=== PATIENT | female | born 1995 | race Two or more races ===

== ENCOUNTER 2024-08-18 15:12 | Outpatient (CLI) | payer MEDICAID, SELFPAY ==
[2024-08-18] VITALS (13 sets, daily range): BP systolic 112–130; BP diastolic 74–93; PULSE 64–79; RESP 18–99; TEMP 36.6; BMI 32.3
[2024-08-18 16:03] LABS: Collection Type, Urine Clean Catch
[2024-08-18 16:06] LABS: Basophils % (Auto) 1 % (0-2.5); Eosinophils % (Auto) 1 % (0-10); Hematocrit 40.9 % (36.0-46.0); Immature Granulocytes % (Auto) 1 % (0-0); Immature Granulocytes Auto 0.03 Thou/mm3 (0.00-0.00); Lymphocytes # (Auto) 2.1 Thou/mm3 (1.0-4.8); Lymphocytes % (Auto) 38 % (10-50); Mean Corpuscular HGB Conc 34.2 g/dl (31.0-37.0); Mean Corpuscular Hemoglobin 28.9 pg (25.0-35.0); Mean Corpuscular Volume 84 fL (80-100); Monocytes # (Auto) 0.3 Thou/mm3 (0.0-0.8); Monocytes % (Auto) 5 % (0-12); Neutrophils # (Auto) 3.1 Thou/mm3 (1.8-7.7); Neutrophils % (Auto) 56 % (37-80); Nucleated Red Blood Cell % 0 /100 WBC (0); Platelet Count 125 Thou/mm3 (140-440); RDW Standard Deviation 47.8 fL (36.4-46.3); Red Blood Count 4.85 Miln/mm3 (4.00-5.20); White Blood Count 5.6 Thou/mm3 (3.6-11.0)
[2024-08-18 16:23] LABS: Alanine Aminotransferase 18 U/L (10-49); Albumin, Serum 3.7 gm/dL (3.5-5.0); Albumin/Globulin Ratio 1.4 (1.2-2.2); Alkaline Phosphatase 133 U/L (46-116); Anion Gap 8 (7-16); Aspartate Amino Transferase 18 U/L (0-34); BUN/Creatinine Ratio 11 Ratio (12-20); Bilirubin,Total 0.5 mg/dL (0.3-1.2); Blood Urea Nitrogen 8 mg/dL (9-23); Calcium 8.8 mg/dL (8.3-10.6); Chloride 106 mMol/L (98-107); Creatinine (Component) 0.7 mg/dL (0.6-1.3); Estimated Creatinine Clearance 119.6 mL/min (>60); Globulin 2.7 gm/dL (2.3-3.5); Glucose 80 mg/dL (74-106); LDH (Lactate Dehydrogenase) 191 U/L (120-246); Osmolality,Calculated 263 (275-295); Potassium 3.8 mMol/L (3.4-5.1); Sodium 133 mMol/L (136-145); Total Protein 6.4 gm/dL (5.7-8.2); Uric Acid 8.4 mg/dL (3.1-7.8); eGFR > 60 See Note
[2024-08-18 16:24] LABS: Bilirubin,Urine Negative (Negative); Blood,Urine Negative (Negative); Clarity,Urine Clear (Clear/Hazy); Color,Urine Lt-Yellow (Lt Yel-Yel); Glucose, Urine Negative (Negative); Ketones,Urine Negative (Negative); Leukocyte Esterase,Urine Positive (Negative); Nitrite,Urine Negative (Negative); Protein,Urine Negative (Neg - Trace); RBC,Urine < 1 /hpf (0-3); Specific Gravity,Urine 1.005 (1.001-1.035); Squamous Epithelial Cell,Urine 1 /hpf (0-5); Urobilinogen,Urine Negative mg/dL (0.0-1.0); WBC,Urine 1 /hpf (0-5)
[2024-08-18 16:26] LABS: Sperm,Urine Present
[2024-08-18 16:29] LABS: Fibrinogen 383 mg/dL (175-375); INR 0.9 (0.9-1.3); Partial Thromboplastin Time 30.5 Seconds (22.0-36.0); Prothrombin Time 10.2 Seconds (9.0-12.2)
[2024-08-18 17:09] LABS: Creatinine,Random Urine 30 mg/dL (30-125); Protein Total, Random Urine < 6 mg/dL (1-14)
--- NOTE | 2024-08-18 17:40 | PD.LDPN ---
Documentation for date of: 08/18/24 OB Labor Progress Note Assessment and Plan Comments: Mera is a 28yo with SIUP at 37&0wk presenting to L&D from clinic for PIH workup. She had mild range bp noted in clinic and this was first occasion in . She also has had cough and congestion with associated headache currently. She notes no painful/regular ctx, no vaginal bleeding, no lof. Normal movement. She denies vision changes and RUQ pain. Current : This has been otherwise uncomplicated, she has had regular OB care with Amanda Le Previous pregnancies: history of term , no PIH ROS negative other than what was described above. First bp 130/93 then all other 7 bp's 110's-120's/70's-80's, afebrile General: well developed, well nourished, no acute distress, conversant Cardiac: normal heart rate Lungs: breathing without distress Abdomen: soft, gravid, non-tender, no rebound or guarding Extremities: no pain with palpation of calves NST: Reactive, +accels, 1 variable decel with no recurrence on extended monitoring, mod angus [place]: no regular ctx pattern Labs: Hgb 14 Plt 125 serum creat 0.7 AST/ALT wnl uric acid 8.4 urine prot:creat 0.2 Flu swab: negative Assessment: Mear is a 28yo with SIUP at 37&0wk with no evidence of GHTN or pre-eclampsia at this time. SOTO treated with tylenol, likely related to viral URI (flu swab negative). Vitals overall wnl, benign exam. Reassuring status. Plan: -Discussed findings and provided reassurance, answered all questions to their apparent satisfaction -Continue routine follow up with CNM in 1 week -Discussed return precautions at length, especially for persistent headache, vision changes and RUQ pain Danyelle Nugent MD
[2024-08-18 17:53] LABS: Influenza A Ag Negative; Influenza B Ag Negative
[2024-08-18] MEDS: ACETAMINOPHEN 325 MG TABLET 650 MG PO (18:03)
== END 2024-08-18 18:10 | disposition home or self-care (01) ==
LOC: S4S1 15:13 → S4SX 15:13
PROVIDERS: Referring Provider Obstetrics & Gynecology; Visit Provider Obstetrics & Gynecology
DX: O26.893 Other specified pregnancy related conditions, third trimester (principal); Z3A.37 37 weeks gestation of pregnancy; R03.0 Elevated blood-pressure reading, without diagnosis of hypertension; R05.9 Cough, unspecified; R51.9 Headache, unspecified
CPT/HCPCS: 36415; 59025; 80053; 81001; 82570; 83615; 84156; 84550; 85025; 85384; 85610; 85730; 87502; A9270